=== PATIENT | male | born 1960 | race African-American/Black ===

== ENCOUNTER 2020-03-18 11:39 | Inpatient (IN) | payer MEDICAID, OTHER ==
[~2020-03-18] VITALS: Ht 170.2 cm; Wt 106.6 kg
[~2020-03-18 11:39] MED LIST: ABILIFY10 MG PO; ACETAMINOPHEN-1 EAC1 PO; ADVAIR 250/501 PUFFS INH; ASPIRIN EC81 MG PO; AVAPRO75 MG ORAL; BENZONATATE100 MG PO; DESYREL50 MG PO; DULERA 100 MCG/13 GM INH; HYDROCODON-ACE1 EA13 PO; IBUPROFEN600 M1 PO; PROAIR HFA8.5 GM INH; Q-TUSSIN100 MG/5 M PO
[2020-03-18] MEDS ORDERED: Lidocaine 2% Visc 15ml soln ORAL ONE (12:00)
[2020-03-18] MEDS ORDERED: Dicyclomine HCl 10mg/5ml oral soln ORAL ONE (12:00)
[2020-03-18] MEDS ORDERED: Mylanta II UD 30ml ORAL ONE (12:00)
--- NOTE | 2020-03-18 12:13 | Emergency Room Report ---
History of Present Illness General Chief Complaint: Pain Source: Patient Present Illness HPI 60-year-old male with history of hypertension, prostate cancer status post radiation treatment in 2010, diabetes, "a hole in my valve that was repaired in the with a laser" here with 2 weeks of chest pain and abdominal pain. Patient says that he has been feeling intermittent epigastric abdominal pain and crushing substernal chest pain that radiates to his neck. The symptoms come and go. He feels as though it is related to exertion, but sometimes it comes unprovoked. Has not taken any medications for these symptoms. Denies history of CAD, however the patient is a poor historian. Denies fevers, chills, lightheadedness, diaphoresis, palpitations, back pain, abdominal pain, nausea, vomiting, diarrhea, dysuria. Allergies: Coded Allergies: No Known Allergies (Verified Allergy, Mild, 07/14/10) COVID-19 Screening Contact w/high risk pt: No Experienced COVID-19 symptoms?: No COVID-19 Testing performed GYN: No Nursing Documentation-[facility] Past Medical History: No History, Except For Hx Cardiac Problems: Yes Hx Hypertension: Yes Hx Asthma: Yes Hx Cancer: Yes Hx Gastrointestinal Problems: Yes Hx Neurological Problems: No Review of Systems All Other Systems: negative except mentioned in HPI Physical Exam Vital Signs Date Time Temp Pulse Resp B/P (MAP) Pulse Ox O2 Delivery O2 Flow Rate FiO2 03/18/20 11:41 98.1 85 19 123/70 (87) 95 Sp02 EP Interpretation: reviewed, normal General Appearance: no apparent distress, alert, non-toxic Head: normocephalic, atraumatic Eyes: bilateral eye normal inspection, bilateral eye PERRL ENT: hearing grossly normal, normal pharynx, no angioedema, normal voice Neck: full range of motion, supple/symm/no masses Respiratory: chest non-tender, lungs clear, normal breath sounds, speaking full sentences Cardiovascular #1: regular rate, rhythm, no edema Cardiovascular #2: 2+ carotid (R), 2+ carotid (L), 2+ radial (R), 2+ radial (L), 2+ dorsalis pedis (R), 2+ dorsalis pedis (L) Gastrointestinal: normal bowel sounds, non tender, soft, non-distended, no guarding, no rebound Rectal: deferred Genitourinary: normal inspection, no CVA tenderness Musculoskeletal: back normal, normal range of motion, gait/station normal, non- tender Neurologic: alert, motor strength/tone normal, oriented x3, sensory intact, responsive, speech normal Psychiatric: judgement/insight normal, memory normal, mood/affect normal, no suicidal/homicidal ideation Lymphatic: no adenopathy Medical Decision Making Diagnostic Impression: Primary Impression: Chest pain Additional Impression: Cocaine abuse ER Course EKG: NSR, no ischemia, intervals WNL. No ectopy. Rate 85 bpm Rhythm strip: patient monitored for arrhythmias - no malignant dysrhythmias, runs of PVCs, nor pauses noted Chest x-ray: No infiltrate/effusion. Cardiomegaly. No free air under the diaphragm. No bony abnormalities Laboratory Tests Test 03/18/20 12:00 03/18/20 12:08 White Blood Count 7.0 K/UL (4.8-10.8) Red Blood Count 5.00 M/UL (4.70-6.10) Hemoglobin 13.7 G/DL (14.2-18.0) L Hematocrit 42.6 % (42.0-52.0) Mean Corpuscular Volume 85 FL (80-99) Mean Corpuscular Hemoglobin 27.5 PG (27.0-31.0) Mean Corpuscular Hemoglobin Concent 32.3 G/DL (32.0-36.0) Red Cell Distribution Width 16.0 % (11.6-14.8) H Platelet Count 271 K/UL (150-450) Mean Platelet Volume 6.3 FL (6.5-10.1) L Neutrophils (%) (Auto) 62.9 % (45.0-75.0) Lymphocytes (%) (Auto) 22.3 % (20.0-45.0) Monocytes (%) (Auto) 8.8 % (1.0-10.0) Eosinophils (%) (Auto) 4.7 % (0.0-3.0) H Basophils (%) (Auto) 1.3 % (0.0-2.0) Sodium Level 143 MMOL/L (136-145) Potassium Level 4.0 MMOL/L (3.5-5.1) Chloride Level 108 MMOL/L (98-107) H Carbon Dioxide Level 27 MMOL/L (21-32) Anion Gap 8 mmol/L (5-15) Blood Urea Nitrogen 21 mg/dL (7-18) H Creatinine 2.0 MG/DL (0.55-1.30) H Estimated Glomerular Filtration Rate 41.2 mL/min (>60) Glucose Level 106 MG/DL (74-106) Calcium Level 8.1 MG/DL (8.5-10.1) L Total Bilirubin 0.2 MG/DL (0.2-1.0) Aspartate Amino Transferase (AST) 15 U/L (15-37) Alanine Aminotransferase (ALT) 26 U/L (12-78) Alkaline Phosphatase 100 U/L (46-116) Troponin I 0.000 ng/mL (0.000-0.056) Total Protein 6.7 G/DL (6.4-8.2) Albumin 3.4 G/DL (3.4-5.0) Globulin 3.3 g/dL Albumin/Globulin Ratio 1.0 (1.0-2.7) Lipase 165 U/L (73-393) Urine Opiates Screen Negative (NEGATIVE) Urine Barbiturates Screen Negative (NEGATIVE) Phencyclidine (PCP) Screen Negative (NEGATIVE) Urine Amphetamines Screen Negative (NEGATIVE) Urine Benzodiazepines Screen Negative (NEGATIVE) Urine Cocaine Screen Positive (NEGATIVE) H Urine Marijuana (THC) Screen Negative (NEGATIVE) 60-year-old male here with chest pain. Patient was hemodynamically stable and neurovascularly intact here in the emergency department. CBC unremarkable. CMP revealed an acute kidney injury with creatinine 2.0, increased from baseline of 1.0. Troponin negative. EKG largely unremarkable. Patient was given aspirin in the emergency department. He had an elevated heart score. Drug screen positive for cocaine. Patient went to telemetry in stable condition. Last Vital Signs Date Time Temp Pulse Resp B/P (MAP) Pulse Ox O2 Delivery O2 Flow Rate FiO2 03/18/20 11:41 98.1 85 19 123/70 (87) 95 Referrals: NOT CHOSEN LOBITO/,REFERRING (PCP) Barrera Jackson M.D. Mar 18, 2020 12:13
[2020-03-18 12:21] LABS: BASOPHILS % (AUTO) 1.3 % (0.0-2.0); EOSINOPHILS % (AUTO) 4.7 % (0.0-3.0); HEMATOCRIT 42.6 % (42.0-52.0); HEMOGLOBIN 13.7 G/DL (14.2-18.0); LYMPHOCYTES % (AUTO) 22.3 % (20.0-45.0); MEAN CORPUSCULAR VOLUME 85 FL (80-99); MONOCYTES % (AUTO) 8.8 % (1.0-10.0); NEUTROPHILS % (AUTO) 62.9 % (45.0-75.0); PLATELET COUNT 271 K/UL (150-450)
[2020-03-18 12:35] VITALS: BP 120/73
[2020-03-18 12:35] LABS: ALBUMIN 3.4 G/DL (3.4-5.0); BILIRUBIN,TOTAL 0.2 MG/DL (0.2-1.0); CALCIUM 8.1 MG/DL (8.5-10.1)
--- NOTE | 2020-03-18 13:00 | NUR ---
ED Nurse Note: Pt walked into ED for abdominal pain 7/10 and cramping for 2 weeks. Pt has no nausea/vomiting. Pt is alert and orientedx4, ambulatory. Set up on monitor. Pt has been seen by LUIGI.
--- NOTE | 2020-03-18 13:43 | Diagnostic Imaging Report ---
. Indication: Chest pain Technique: One view of the chest Comparison: none Findings: The heart is enlarged. Lungs and pleural spaces are clear. Impression: Cardiomegaly. No acute process
--- NOTE | 2020-03-18 14:30 | NUR ---
ED Nurse Note: RN glass cut off supervisor called regarding placing pts money in safe.
[2020-03-18 15:10] VITALS: BP 124/76
--- NOTE | 2020-03-18 15:22 | NUR ---
ED Nurse Note: Report given to Dede REARDON.
[2020-03-18] MEDS ORDERED: NORCO 10-325 T1 EACH ORAL (15:28)
[2020-03-18] MEDS ORDERED: DOCUSATE SODIU100 MG ORAL (15:28)
[2020-03-18] MEDS ORDERED: DIAZEPAM2 MG ORAL (15:28)
--- NOTE | 2020-03-18 15:30 | NUR ---
ED Nurse Note: Pt transferred to tele floor with all belongings. Pt has no acute distress.
--- NOTE | 2020-03-18 15:53 | NUR ---
NURSE NOTES: Report received from Noris REARDON. Patient admitted from ER via zamzam, pt is AxOx4, ambulatory with quad-cane, on room air, not in distress. No current complaints at this time, patient reports stiffness on joints and extremities. Skin is intact. Belongings checked and accounted for. As per nurse $532 was placed in safe. Bed low and locked, siderails up x2, call light placed within reach and instructed to call nurse for assistance. Will continue to monitor.
[2020-03-18] MEDS ORDERED: HYDROcodone/Acetamin 10/325 tab ORAL PRN (16:30)
[2020-03-18] MEDS ORDERED: Morphine Sulfate 4mg/ml Inj (IV USE ONLY) IVP PRN (16:45)
[2020-03-18] MEDS ORDERED: LORazepam 1mg tab ORAL PRN (16:45)
[2020-03-18] MEDS ORDERED: Morphine Sulfate 2mg/ml Inj(IV/IM USE ONLY) IVP PRN ×2 (16:45)
[2020-03-18] MEDS ORDERED: Milk of Magnesia 30ml Ud ORAL PRN (16:45)
[2020-03-18] MEDS ORDERED: Nitroglycerin Subl 0.4mg tab SL PRN (16:45)
--- NOTE | 2020-03-18 17:34 | History and Physical ---
History of Present Illness General Date patient seen: Mar 18, 2020 Time patient seen: 17:00 Reason for Hospitalization: Chest Pain Present Illness HPI 60-year-old male with history of hypertension, prostate cancer status post radiation treatment in 2009, diabetes ( not on medications ), reports having had "a hole in my part of his heart that was repaired in the with a laser". He was referred to the ER due to chest pain over the last- 2 weeks which is now getting worse. He reports sensation of discomfort in his midsternal area of chest and some abdominal pain which does not change with position, food or any medication. The symptoms come and go. He feels as though it is related to exertion, but sometimes it comes unprovoked. Has not taken any medications for these symptoms. Denies history of CAD, however the patient is a poor historian. Denies fevers, chills, lightheadedness, diaphoresis, palpitations, back pain, abdominal pain, nausea, vomiting, diarrhea, dysuria. He reports having had a colonoscopy last January 2020 and it was normal. He smokes 3-4 cigarrettes a day, denies alcohol and reports occasional cannabis and cocaine use ( positive U tox in ER ). He has never had EGD. Allergies: Coded Allergies: No Known Allergies (Verified Allergy, Mild, 07/14/10) COVID-19 Screening Contact w/high risk pt: No Recent Travel to affected area: No Experienced COVID-19 symptoms?: No Medication History Scheduled Aripiprazole* (Abilify*), 20 PO BEDTIME, (Reported) Aspirin Ec* (Aspirin Ec*), 81 MG PO DAILY, (Reported) Benzonatate* (Benzonatate*), 0.5 MG PO BID, (Reported) Docusate Sodium* (Docusate Sodium*), 200 MG ORAL DAILY, (Reported) Irbesartan* (Avapro*), 75 MG ORAL DAILY Mometasone/Formoterol (Dulera 100 Mcg/5 Mcg Inhaler), 5 MCG INH BID, (Reported) Trazodone Hcl (Desyrel), 50 MG PO BEDTIME, (Reported) Scheduled PRN Acetaminophen With Codeine (T#3) (Tylenol #3 Tab*), 30 PO PRN PRN for For Pain, (Reported) Albuterol Sulfate* (Proair Hfa*), 90 MCG INH PRN PRN for Shortness of Breath, (Reported) Diazepam* (Diazepam*), 2 MG ORAL Q6H PRN for ANXIETY, (Reported) Guaifenesin (Q-Tussin), 5 ML PO PRN PRN for For Cough, (Reported) Hydrocodone Bit/Acetaminophen 10-325* ([place] 10-325*), 1 TAB ORAL Q6H PRN for For Pain, (Reported) Patient History Healthcare decision maker Resuscitation status Advanced Directive on File Review of Systems All Other Systems: negative except mentioned in HPI Physical Exam General Appearance: WD/WN Lines, tubes and drains: peripheral HEENT: normocephalic Neck: non-tender Respiratory/Chest: chest wall non-tender, lungs clear, normal breath sounds Cardiovascular/Chest: normal rate Abdomen: non tender Extremities: normal range of motion Skin Exam: normal pigmentation 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 Last 24 Hour Vital Signs Date Time Temp Pulse Resp B/P (MAP) Pulse Ox O2 Delivery O2 Flow Rate FiO2 03/18/20 16:17 Room Air 03/18/20 15:30 98.6 82 19 132/87 98 Room Air 03/18/20 15:10 98.1 81 19 124/76 100 Room Air 03/18/20 12:35 98.1 83 17 120/73 97 03/18/20 11:41 98.1 85 19 123/70 (87) 95 Laboratory Tests Test 03/18/20 12:00 03/18/20 12:08 White Blood Count 7.0 K/UL (4.8-10.8) Red Blood Count 5.00 M/UL (4.70-6.10) Hemoglobin 13.7 G/DL (14.2-18.0) L Hematocrit 42.6 % (42.0-52.0) Mean Corpuscular Volume 85 FL (80-99) Mean Corpuscular Hemoglobin 27.5 PG (27.0-31.0) Mean Corpuscular Hemoglobin Concent 32.3 G/DL (32.0-36.0) Red Cell Distribution Width 16.0 % (11.6-14.8) H Platelet Count 271 K/UL (150-450) Mean Platelet Volume 6.3 FL (6.5-10.1) L Neutrophils (%) (Auto) 62.9 % (45.0-75.0) Lymphocytes (%) (Auto) 22.3 % (20.0-45.0) Monocytes (%) (Auto) 8.8 % (1.0-10.0) Eosinophils (%) (Auto) 4.7 % (0.0-3.0) H Basophils (%) (Auto) 1.3 % (0.0-2.0) Sodium Level 143 MMOL/L (136-145) Potassium Level 4.0 MMOL/L (3.5-5.1) Chloride Level 108 MMOL/L (98-107) H Carbon Dioxide Level 27 MMOL/L (21-32) Anion Gap 8 mmol/L (5-15) Blood Urea Nitrogen 21 mg/dL (7-18) H Creatinine 2.0 MG/DL (0.55-1.30) H Estimat Glomerular Filtration Rate 41.2 mL/min (>60) Glucose Level 106 MG/DL (74-106) Calcium Level 8.1 MG/DL (8.5-10.1) L Total Bilirubin 0.2 MG/DL (0.2-1.0) Aspartate Amino Transf (AST/SGOT) 15 U/L (15-37) Alanine Aminotransferase (ALT/SGPT) 26 U/L (12-78) Alkaline Phosphatase 100 U/L (46-116) Troponin I 0.000 ng/mL (0.000-0.056) Total Protein 6.7 G/DL (6.4-8.2) Albumin 3.4 G/DL (3.4-5.0) Globulin 3.3 g/dL Albumin/Globulin Ratio 1.0 (1.0-2.7) Lipase 165 U/L (73-393) Urine Opiates Screen Negative (NEGATIVE) Urine Barbiturates Screen Negative (NEGATIVE) Phencyclidine (PCP) Screen Negative (NEGATIVE) Urine Amphetamines Screen Negative (NEGATIVE) Urine Benzodiazepines Screen Negative (NEGATIVE) Urine Cocaine Screen Positive (NEGATIVE) H Urine Marijuana (THC) Screen Negative (NEGATIVE) Height (Feet): 5 Height (Inches): 7.00 Weight (Pounds): 235 Medications Current Medications Medications (Trade) Dose Ordered Sig/Mart Route PRN Reason Start Time Stop Time Status Last Admin Dose Admin Acetaminophen (Tylenol) 650 mg Q4H PRN ORAL Mild Pain (Pain Scale 1-3) 03/18/20 16:45 04/17/20 16:44 Acetaminophen/ Hydrocodone Bitart ([place] 10325) 1 tab Q6H PRN ORAL Severe Pain (Pain Scale 7-10) 03/18/20 16:30 03/25/20 16:29 Aspirin (ASA) 81 mg DAILY ORAL 03/19/20 09:00 05/03/20 08:59 Carisoprodol (Soma) 350 mg EVERY 8 HOURS ORAL 03/18/20 22:00 04/17/20 21:59 Dextrose (Dextrose 50%) 25 ml Q30M PRN IV Hypoglycemia 03/18/20 16:45 06/16/20 16:44 Dextrose (Dextrose 50%) 50 ml Q30M PRN IV Hypoglycemia 03/18/20 16:45 06/16/20 16:44 Docusate Sodium (Colace) 100 mg EVERY 12 HOURS ORAL 03/18/20 21:00 04/17/20 20:59 Enoxaparin Sodium (Lovenox) 40 mg Q24H SUBQ 03/18/20 18:00 06/16/20 17:59 Famotidine (Pepcid) 40 mg DAILY ORAL 03/19/20 09:00 06/17/20 08:59 Lorazepam (Ativan) 1 mg Q4H PRN ORAL For Anxiety 03/18/20 16:45 03/25/20 16:44 Magnesium Hydroxide (Mom) 30 ml HSPRN PRN ORAL Constipation 03/18/20 16:45 04/17/20 16:44 Morphine Sulfate (Morphine Sulfate) 1 mg Q3H PRN IVP mild pain 03/18/20 16:45 03/25/20 16:44 Morphine Sulfate (Morphine Sulfate) 2 mg Q4H PRN IVP Moderate Pain (Pain Scale 4-6) 03/18/20 16:45 03/25/20 16:44 Morphine Sulfate (Morphine Sulfate) 4 mg Q4H PRN IVP Severe Pain (Pain Scale 7-10) 03/18/20 16:45 03/25/20 16:44 Nitroglycerin (Ntg) 0.4 mg Q5M PRN SL Prn Chest Pain 03/18/20 16:45 04/17/20 16:44 Ondansetron HCl (Zofran) 4 mg Q6H PRN IVP Nausea & Vomiting 03/18/20 16:45 04/17/20 16:44 Sodium Chloride 1,000 ml @ 75 mls/hr [id number] IV 03/18/20 17:05 03/19/20 15:00 03/18/20 17:11 Temazepam (Restoril) 15 mg DAILYPRN PRN ORAL Insomnia 03/18/20 16:45 03/25/20 16:44 Objective Narrative CXR: no acute abnormality EKG NSR 88 BPM, no acute stt changes, no conduction defects noted. Assessment/Plan Status Narrative 60 y/o male admitted to the hospital with: # Chest pain # Urine tox positive for cocaine concerning for vasospasm and acute angina Education provided to the patient to abstain from cocaine NTG prn Telemetry TTE to rule out WMA or diastolic dysfuction Serial troponin. First troponin and EKG negative for ischemic heart disease AM Lipid panel Continue ASA # SAJAN with creatinine 2 Urine lytes ordered IVF will be continued and monitor response to IVF Consider renal consult and US if not improving creatinine in AM # Hypertensive heart disease Monitor BP Reportedly on ARB, will hold for now and monitor BP, will determine next steps in therapy # Fall risk PT evaluation needed Patient is open to go to short term SNF if indicated He uses a cane while ambulating # Reported history of T2DM HbA1c DVT ppx with lMWH renal dose GI ppx with PPI FULL CODE Omi Parker MD Mar 18, 2020 17:33
[2020-03-18] MEDS ORDERED: HydrALAZINE 25mg tab ORAL PRN (17:45)
[2020-03-18] MEDS ORDERED: guaiFENesin 100mg/5ml Liq ud ORAL PRN (17:45)
[2020-03-18] MEDS: Enoxaparin 40mg Inj SUBQ SCH (17:59)
--- NOTE | 2020-03-18 19:04 | NUR ---
NURSE HAND-OFF REPORT: Important Events on Shift: Admit from ER; admission orders done, no adverse events noted Patient Status: Stable Diet: Low fat, Low sodium Pending Orders: Labs in AM, 2D echo Pending Results/Labs: None Pending MD notification: None Latest Vital Signs: Temperature 98.6 , Pulse 82 , B/P 132 /87 , Respiratory Rate 19 , O2 SAT 98 , Room Air, O2 Flow Rate . Vital Sign Comment: per baseline EKG Rhythm: Sinus Rhythm Rhythm change?: MD Notified?: - MD Response: Latest Iraheta Fall Score: 35 Fall Risk: Medium Risk Safety Measures: Call light Within Reach, Bed Alarm Zone 1, Side Rails Side Rails x2, Bed position Low and Locked. Fall Precautions: Patient Fall Education Report given to [place] REARDON.
--- NOTE | 2020-03-18 19:05 | NUR ---
NURSE NOTES: received pt from Maribell REARDON., pt is awake and AO x4 at this time. monitor shows SR at this time. pt is at RA 100% O2sat, no SOB noted. pt states he feels comfortable at this time. Right AC 18G 1/2 NS @ 75ml/hr, Iv site intact, clean, and patent. side rails x3 up. no active bleeding noted. cane at the bedside. bed at the lowest position, alarmed, and locked. call light within reach. will contiue to monitor pt with plan of care.
[2020-03-18 20:00] VITALS: BP 141/83
[2020-03-18] MEDS: Docusate 100mg cap ORAL SCH (20:09)
[2020-03-18] MEDS: Benzonatate 100mg Perles ORAL SCH (20:09)
--- NOTE | 2020-03-18 23:14 | NUR ---
NURSE NOTES: pt is sleeping on the bed, no s/s of pain , no S/s SOB at this time. call light within reach. will continue to monitor pt.
--- NOTE | 2020-03-18 23:43 | NUR ---
NURSE HAND-OFF REPORT: Important Events on Shift: no significant changes Patient Status: stable Diet: low sodium and low fat diet Pending Orders: n/a Pending Results/Labs:UA Pending MD notification:n/a Latest Vital Signs: Temperature 98.4 , Pulse 74 , B/P 141 /83 , Respiratory Rate 20 , O2 SAT 98 , Room Air, O2 Flow Rate . Vital Sign Comment: stable EKG Rhythm: Sinus Rhythm Rhythm change?: N MD Notified?: - MD Response: Latest Iraheta Fall Score: 35 Fall Risk: Medium Risk Safety Measures: Call light Within Reach, Bed Alarm Zone 3, Side Rails Side Rails x3, Bed position Low and Locked. Fall Precautions: Yellow Socks Yellow Gown Door Sign Patient Fall Education Report given to Rosa CURRY.
--- NOTE | 2020-03-18 23:50 | NUR ---
NURSE NOTES: Received pt and report from Adriana Melgar RN. Observed pt resting in bed with both eyes closed; arousable to voice. Pt is A/Ox4. finisher wallboard and plasterboard is in placed; pt is NSR. IV site intact, asymptomatic, and patent; running 1/2 NS @ 75cc/hr. Bed is in the lowest position and locked. Call light and bedside table is within reach. No signs/symptoms of acute distress noted. Will continue plan of care.
[2020-03-19] VITALS (7 sets, daily range): BP systolic 100–164; BP diastolic 55–84
--- NOTE | 2020-03-19 01:17 | NUR ---
NURSE NOTES: Observed pt asleep in bed. No signs/symptoms of acute distress noted.
--- NOTE | 2020-03-19 06:43 | NUR ---
NURSE NOTES: Notified Dr. Parker that pt was SR w/1st degree AVB and Sinus Arrhythmias while asleep. Pt was asymptomatic. Pt states history of sleep apnea. Awaiting call back.
--- NOTE | 2020-03-19 07:15 | NUR ---
NURSE NOTES: Dr. Parker returned phone call regarding SR w/1st degree AVB and Sinus arrhythmia. No new orders at this time.
--- NOTE | 2020-03-19 07:21 | NUR ---
NURSE NOTES: Report received from Nai RN. Patient seen on rounds, up in bed, on room air, not in distress. No current complaints at this time. Nurse reports episode of SR with 1st degree HB and sinus arrhythmia, Dr. Parker is aware and no orders at this time. PIV on Left AC patent and infusing 1/2 NS @ 75ml/hr Pt is ambulatory with quad cane. Bed low and locked, siderails up x2, call light placed within reach and instructed to call nurse for assistance. Will continue with plan of care.
--- NOTE | 2020-03-19 07:24 | NUR ---
NURSE HAND-OFF REPORT: Important Events on Shift: Dr. Parker made aware that pt was SR w/1st degree AVB and Sinus Arrhythmia. No new orders at this time. Pt was asymptomatic. Patient Status: Stable Diet: Low sodium and low fat diet Pending Orders: 2D Echo Pending Results/Labs: AM Labs Pending MD notification: N Latest Vital Signs: Temperature 98.1 , Pulse 78 , B/P 128 /84 , Respiratory Rate 20 , O2 SAT 98 , Room Air, O2 Flow Rate . EKG Rhythm: Sinus arrhythmia Rhythm change?: Y Notified?: Y -Dr. Keith CURRAN Response: No new orders Latest Iraheta Fall Score: 35 Fall Risk: Medium Risk Safety Measures: Call light Within Reach, Bed Alarm Zone 3, Side Rails Side Rails x3, Bed position Low and Locked. Fall Precautions: Yellow Socks Yellow Gown Door Sign Patient Fall Education Report given to ALEXYS Stevens.
[2020-03-19] MEDS: Benzonatate 100mg Perles ORAL SCH ×2 (08:15→17:22)
[2020-03-19] MEDS: Aspirin Baby 81mg ORAL SCH (08:15)
[2020-03-19] MEDS: Docusate 100mg cap ORAL SCH ×2 (08:15→21:15)
[2020-03-19 08:41] LABS: BASOPHILS % (AUTO) 1.2 % (0.0-2.0); EOSINOPHILS % (AUTO) 7.7 % (0.0-3.0); HEMATOCRIT 42.5 % (42.0-52.0); HEMOGLOBIN 13.8 G/DL (14.2-18.0); LYMPHOCYTES % (AUTO) 27.6 % (20.0-45.0); MEAN CORPUSCULAR VOLUME 84 FL (80-99); MONOCYTES % (AUTO) 10.2 % (1.0-10.0); NEUTROPHILS % (AUTO) 53.3 % (45.0-75.0); PLATELET COUNT 239 K/UL (150-450); RED BLOOD COUNT 5.04 M/UL (4.70-6.10); RED CELL DISTRIBUTION WIDTH 15.8 % (11.6-14.8); WHITE BLOOD COUNT 5.5 K/UL (4.8-10.8)
[2020-03-19] MEDS ORDERED: Docusate 100mg cap ORAL SCH (09:00)
[2020-03-19 09:21] LABS: ANION GAP 6 mmol/L (5-15); BLOOD UREA NITROGEN 16 mg/dL (7-18); CARBON DIOXIDE 28 MMOL/L (21-32); CHLORIDE 107 MMOL/L (98-107); CHOLESTEROL 120 MG/DL (< 200); CREATININE 1.6 MG/DL (0.55-1.30); HDL CHOLESTEROL 52 MG/DL (40-60); POTASSIUM 4.1 MMOL/L (3.5-5.1); SODIUM 141 MMOL/L (136-145); TRIGLYCERIDES 89 MG/DL (30-150)
--- NOTE | 2020-03-19 13:32 | General Progress Note ---
Subjective Date patient seen: Mar 19, 2020 Time patient seen: 13:00 ROS Limited/Unobtainable: No Allergies: Coded Allergies: No Known Allergies (Verified Allergy, Mild, 07/14/10) All Systems: reviewed and negative except above Objective Last 24 Hour Vital Signs Date Time Temp Pulse Resp B/P (MAP) Pulse Ox O2 Delivery O2 Flow Rate FiO2 03/19/20 12:56 164/84 03/19/20 12:00 97.9 68 18 164/84 (110) 100 03/19/20 12:00 58 03/19/20 09:00 Room Air 03/19/20 08:00 56 03/19/20 08:00 98.0 67 20 130/66 (87) 96 03/19/20 04:00 98.1 66 20 128/84 (99) 98 03/19/20 04:00 78 03/19/20 00:00 97.9 65 17 129/55 (79) 98 03/19/20 00:00 76 03/18/20 21:00 Room Air 03/18/20 20:00 98.4 74 20 141/83 (102) 98 03/18/20 19:42 78 03/18/20 16:17 Room Air 03/18/20 15:30 98.6 82 19 132/87 98 Room Air 03/18/20 15:10 98.1 81 19 124/76 100 Room Air Intake and Output 03/18/20 03/19/20 19:00 07:00 Intake Total 315 ml 1100 ml Output Total 3600 ml Balance 315 ml -2500 ml Intake Oral 240 ml 350 ml IV Total 75 ml 750 ml Output Urine Total 3600 ml # Voids 1 6 # Bowel Movements 1 Laboratory Tests 03/18/20 18:03: Urine Random Sodium 107, Urine Creatinine 165.4H 03/18/20 18:30: Troponin I 0.000 03/19/20 08:30: Troponin I 0.000, White Blood Count 5.5, Red Blood Count 5.04, Hemoglobin 13.8L, Hematocrit 42.5, Mean Corpuscular Volume 84, Mean Corpuscular Hemoglobin 27.4, Mean Corpuscular Hemoglobin Concent 32.5, Red Cell Distribution Width 15.8H, Platelet Count 239, Mean Platelet Volume 6.0L, Neutrophils (%) (Auto) 53.3, Lymphocytes (%) (Auto) 27.6, Monocytes (%) (Auto) 10.2H, Eosinophils (%) (Auto) 7.7H, Basophils (%) (Auto) 1.2, Sodium Level 141, Potassium Level 4.1, Chloride Level 107, Carbon Dioxide Level 28, Anion Gap 6, Blood Urea Nitrogen 16, Creatinine 1.6H, Estimat Glomerular Filtration Rate 53.3, Glucose Level 103, Hemoglobin A1c 5.8, Calcium Level 8.0L, Magnesium Level 1.9, Triglycerides Level 89, Cholesterol Level 120, LDL Cholesterol 49, HDL Cholesterol 52, Cholesterol/HDL Ratio 2.3L, Thyroid Stimulating Hormone (TSH) 0.689 Height (Feet): 5 Height (Inches): 7.00 Weight (Pounds): 235 General Appearance: WD/WN EENT: PERRL/EOMI Neck: non-tender Cardiovascular: normal rate Respiratory/Chest: lungs clear Abdomen: soft 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 First troponin and EKG negative for ischemic heart disease AM Lipid panel Continue ASA # SAJAN with creatinine 2 Urine lytes noted and FENA < 1 % consistent with pre renal etiology. IVF will be wean off gradually as good response to IVF is noted today. Cr: 1.6 # Hypertensive heart disease Monitor BP Reportedly on ARB, will hold for now and monitor BP shows trend in the 160;s today. Hyralazine PRN was given. Will start Amlodipine. # Fall risk PT evaluation is pending. Patient is open to go to short term SNF if indicated He uses a cane while ambulating # Reported history of T2DM HbA1c pending DVT ppx with lMWH renal dose GI ppx with PPI FULL CODE Omi Parker MD Mar 19, 2020 13:32
--- NOTE | 2020-03-19 14:41 | NUR ---
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
--- NOTE | 2020-03-19 15:26 | NUR ---
*-*DISCHARGE PLANNING*-* LYDIA HAS BEEN REFERRED TO: [facility] P: [phone] PLACED A CALL TO HERMELINDO AT [facility], NO ANSWER, UNABLE TO LEAVE VOICE MESSAGE Addendum: 03/19/20 at 1555 by MONTEZ PARKER CM *-*DISCHARGE PLANNING*-* PATIENT HAS BEEN REFERRED TO: [facility] P: [phone] PLACED A CALL TO HERMELINDO AT [facility], NO ANSWER, UNABLE TO LEAVE VOICE MESSAGE
--- NOTE | 2020-03-19 16:52 | NUR ---
PT Note PT sage completed, treatment initiated. Patient has muscle weakness and decreased postural stability, making him at risk for falls. Patient needs physical therapy to increase his muscle strength and balance to improve his safety in mobility and gait to enable him to return to PLF and prior living situation. Addendum: 03/19/20 at 1653 by PRATIMA THAKKAR PT Amended: Links added.
[2020-03-19] MEDS: Enoxaparin 40mg Inj SUBQ SCH (17:23)
--- NOTE | 2020-03-19 19:11 | NUR ---
NURSE HAND-OFF REPORT: Important Events on Shift: No adverse events noted; 2D echo done EF 65% Dr. Parker aware Patient Status: Stable Diet: Low fat, Low Na Pending Orders: Labs in am Pending Results/Labs: None Pending MD notification: Pt is requesting an MRI for hip and lower back issues; endorsed to nurse Latest Vital Signs: Temperature 99.0 , Pulse 65 , B/P 139 /82 , Respiratory Rate 20 , O2 SAT 100 , Room Air, O2 Flow Rate . Vital Sign Comment: EKG Rhythm: Sinus Rhythm Rhythm change?: N MD Notified?: Y -Dr. Keith CURRAN Response: MD acknowledged Latest Iraheta Fall Score: 35 Fall Risk: Medium Risk Safety Measures: Call light Within Reach, Bed Alarm Zone 3, Side Rails Side Rails x3, Bed position Low and Locked. Fall Precautions: Yellow Socks Yellow Gown Door Sign Patient Fall Education Report given to Kaitlyn REARDON.
--- NOTE | 2020-03-19 19:25 | NUR ---
NURSE NOTES: Received report from ALEXYS Stevens. Patient is awake on bed, alert and oriented x 4. radiation monitor is in place, shows sinus bradycardia. On room air, sating 96% with no shortness of breath reported. On low fat, low sodium diet. Patient is ambulatory with assistive device of quad cane. IV site is on right AC g-18, running fluid of 1/2 NS @ 50 cc/hour that is patent and intact. Safety measures are in place, bed in lowest and locked position, side rails up x 2, call light button and bedside table within reach, instructed to call for any assistance needed.
[2020-03-20] VITALS: BP 133/74
[2020-03-20 04:00] VITALS: BP 140/85
--- NOTE | 2020-03-20 07:04 | NUR ---
NURSE HAND-OFF REPORT: Important Events on Shift: Patient has been resting well the whole shift and no complaints of pain. Patient Status: Patient is asleep, in stable condition. Plan of care endorsed. RN made aware that patient is requesting to have MRI of the back and hip, patient states that he's having a on/off pain on that area. Diet: low fat. low sodium diet Pending Orders: none Pending Results/Labs:BMP result Pending MD notification:none Latest Vital Signs: Temperature 98.0 , Pulse 60 , B/P 140 /85 , Respiratory Rate 18 , O2 SAT 98 , Room Air, O2 Flow Rate . Vital Sign Comment: stable EKG Rhythm: Sinus Rhythm Rhythm change?: N MD Notified?: Yue Parker MD Response: MD acknowledged Latest Iraheta Fall Score: 35 Fall Risk: Medium Risk Safety Measures: Call light Within Reach, Bed Alarm Zone 1, Side Rails Side Rails x2, Bed position Low and Locked. Fall Precautions: Yellow Socks Yellow Gown Door Sign Patient Fall Education Report given to ALEXYS Delcid.
--- NOTE | 2020-03-20 07:04 | NUR ---
NURSE NOTES: Pt relieved from Rivas REARDON. Pt in bed sleeping. no sign of distress or sob. bed low and locked. call light within reach. NS runing in left hand at 50cc/hr
[2020-03-20 08:00] VITALS: BP 149/63
[2020-03-20 08:38] LABS: CREATININE 1.5 MG/DL (0.55-1.30); POTASSIUM 4.5 MMOL/L (3.5-5.1)
[2020-03-20] MEDS: Docusate 100mg cap ORAL SCH (09:51)
[2020-03-20 09:52] VITALS: BP 149/63
[2020-03-20] MEDS: Benzonatate 100mg Perles ORAL SCH (09:52)
[2020-03-20] MEDS: Aspirin Baby 81mg ORAL SCH (09:52)
[2020-03-20] MEDS ORDERED: HYDRALAZINE HCL25 M1 ORAL (09:53)
[2020-03-20] MEDS ORDERED: NORVASC5 MG ORAL (09:53)
[2020-03-20] MEDS ORDERED: NITRO0.4 SL (09:53)
[2020-03-20] MEDS ORDERED: CARISOPRODOL350 MG ORAL (09:53)
--- NOTE | 2020-03-20 09:59 | Discharge Summary ---
Discharge Summary Hospital Course Date of Admission Mar 18, 2020 at 13:45 Date of Discharge 03/20/2020 Admitting Diagnosis chest pain, SAJAN HPI Miguelito Brito Jr is a 60 year old male who was admitted on Mar 18, 2020 at 13:45 for Chest Pain,Acute Kidney Injury Consultations none Procedures none Hospital Course 60 y/o male admitted to the hospital with: # Chest pain # Urine tox positive for cocaine concerning for vasospasm and acute angina Education provided to the patient to abstain from cocaine NTG prn was not used during the hospitalization Telemetry noted 1 degree AVB and no further arrhythmias. TTE EF 60 % and NO WMA or valvular dysfunction was noted. Serial troponin x 3 negative Lipid panel reviewed and no indication to start statin therapy at this time Continue ASA, refrain from cocaine has been discussed with the patient in detail. # SAJAN with creatinine 2 Urine lytes noted and FENA < 1 % consistent with pre renal etiology. IVF will be wean off gradually as good response to IVF is noted today. Cr: 1.6 and Cr: 1.5 today. Will continue to monitor and avoid BRI or ARB for now. # Hypertensive heart disease Monitor BP Reportedly on ARB, will hold for now and monitor BP shows trend in the 160;s today. Hyralazine PRN was given. Started Amlodipine and continue as outpatient. # Fall risk PT evaluation reviewed and the patient is open to go to short term SNF as recommended by PT. He uses a cane while ambulating and need to improve mobility and strength prior to returning home. # Reported history of T2DM HbA1c pending Discharge Medications New Medications: Amlodipine Besylate (Norvasc) 5 Mg Tablet 5 MG ORAL DAILY for 60 Days, #60 TAB 2 Refills Carisoprodol* (Carisoprodol*) 350 Mg Tablet 350 MG ORAL EVERY 8 HOURS for 30 Days, #90 TAB Hydralazine Hcl* (Hydralazine Hcl*) 25 Mg Tablet 25 MG ORAL Q6H PRN for 30 Days, #90 TAB PRN for sbp > 160 mmHg Nitroglycerin 0.4MG table* (Nitroglycerin*) 0.4 Mg Tab.subl 0.4 MG SL Q5M PRN for 14 Days, #30 TAB prn for chest pain Continued Medications: Albuterol Sulfate* (Proair Hfa*) 8.5 Gm Hfa.aer.ad 90 MCG INH PRN PRN for Shortness of Breath, #85 Aspirin Ec* (Aspirin Ec*) 81 Mg Tablet.dr 81 MG PO DAILY, #30 Docusate Sodium* (Docusate Sodium*) 100 Mg Capsule 200 MG ORAL DAILY for constipation, CAP Hydrocodone Bit/Acetaminophen 10-325* (Mcrae [place] 10-325*) 1 Each Tablet 1 TAB ORAL Q6H PRN for For Pain, #10 TAB 0 Refills PRN PAIN Trazodone Hcl (Desyrel) 50 Mg Tablet 50 MG PO BEDTIME, #60 Discontinued Medications: Acetaminophen With Codeine (T#3) (Tylenol #3 Tab*) 1 Each Tablet 30 PO PRN PRN for For Pain, #20 Aripiprazole* (Abilify*) 10 Mg Tablet 20 PO BEDTIME for For Anxiety, #30 Benzonatate* (Benzonatate*) 100 Mg Capsule 0.5 MG PO BID, #30 Diazepam* (Diazepam*) 2 Mg Tablet 2 MG ORAL Q6H PRN for ANXIETY, #30 TAB 0 Refills Guaifenesin (Q-Tussin) 100 Mg/5 Ml Liquid 5 ML PO PRN PRN for For Cough, #240 Irbesartan* (Avapro*) 75 Mg Tablet 75 MG ORAL DAILY, #30 TAB Mometasone/Formoterol (Dulera 100 Mcg/5 Mcg Inhaler) 13 Gm Hfa.aer.ad 5 MCG INH BID for Bronchospasm, #13 Discharge Condition Upon Discharge: stable Discharge Vital Signs Last Vital Signs Date Time Temp Pulse Resp B/P (MAP) Pulse Ox O2 Delivery O2 Flow Rate FiO2 03/20/20 09:52 63 149/63 03/20/20 08:00 97.7 18 98 03/19/20 21:00 Room Air Discharge Disposition Patient was discharged to [facility] Discharge Diagnoses: (1) SAJAN (acute kidney injury) (2) Cocaine abuse (3) Chest pain Omi Parker MD Mar 20, 2020 09:59
--- NOTE | 2020-03-20 10:17 | NUR ---
DISCHARGE PLANNING: Faxed clinical info (Face sheet / DCP order / H&P / progress notes / MAR / lab and imaging reports / PT notes) to [facility] attn: Erica @ [phone]. Patient has Medicare coverage with policy# [id number]. Erica @ [facility] contact# [phone] For the report - [facility] / P: [phone] Addendum: 03/20/20 at 1100 by KESHA MCCLELLAN CM Faxed DC order and addendum DC summary to [facility] attn: Erica @ [phone].
--- NOTE | 2020-03-20 11:03 | NUR ---
Nursing Lead Project Manager Note: Received a call from Erica @ [facility] regarding D/C orders for patient. Per Erica she is currently working on approval and will inform myself of Radha(MIGUEL) when/if bed a bed becomes available. Erica requested Discharge Summary (including wavier) & Discharge order, endorsed to Radha(MIGUEL) and she agrees to provide/fax.
--- NOTE | 2020-03-20 11:29 | NUR ---
Nursing Cause Analyst Note:Discharge to [facility] Reading Room #27A Nurse to call report @ [phone] Information provided Erica ([facility]) [facility] ETA 12:30 ([id number]).... Primary RN/machine fixer informed
--- NOTE | 2020-03-20 13:26 | NUR ---
NURSE NOTES: Report given to Hafsa REARDON at [facility]. Tele box/IV/Wristband removed by Lior Barney RN. Pt signed for money from safe and belongings sheet signed for. Pt has cane glasses and clothes. all signed for. Pt stable awake alert and oriented. No sign of distress at this time. Please note Discharge charting mistakenly says "no" to interfaculty report, but it was in fact done and given to [facility].
== END 2020-03-20 13:29 | DRG 198 ==
LOC: EMR 12:08 → 2E 13:45 → EDBEDREQ 15:10
DX: I20.9 Angina pectoris, unspecified (principal); I11.9 Hypertensive heart disease without heart failure; N17.9 Acute kidney failure, unspecified; F14.10 Cocaine abuse, uncomplicated; Z85.46 Personal history of malignant neoplasm of prostate; Z92.3 Personal history of irradiation; Z79.82 Long term (current) use of aspirin; E11.9 Type 2 diabetes mellitus without complications
CPT/HCPCS: 36415; 71045; 80048; 80053; 80061; 80307; 82570; 83036; 83690; 83735; 84300; 84443; 84484; 85025; 93005; 93306; 96360; 99285; J7030